=== PATIENT | male | born 1965 | race Caucasian/White ===

== ENCOUNTER 2020-01-18 17:24 | Outpatient (CLI) | payer OTHER ==
[2020-01-18 17:54] LABS: HB2 TOTAL 16.1 g/dL; HEMOGLOBIN A1C 0.99 g/dL; HEMOGLOBIN A1C % 7.8 % (4.6-6.2)
== END 2020-01-18 17:25 | disposition home or self-care (01) ==
LOC: LAB 17:24
PROVIDERS: ATTEND Family Medicine
DX: E11.65 Type 2 diabetes mellitus with hyperglycemia (principal)
CPT/HCPCS: 36415; 83036

== ENCOUNTER 2020-04-18 12:51 | Outpatient (CLI) | payer OTHER ==
[2020-04-18 14:11] LABS: HEMOGLOBIN A1c% 7.3 % (4.27-6.07)
== END 2020-04-18 12:52 | disposition home or self-care (01) ==
LOC: LAB 12:51
PROVIDERS: ATTEND Family Medicine
DX: E11.65 Type 2 diabetes mellitus with hyperglycemia (principal)
CPT/HCPCS: 36415; 83036

== ENCOUNTER 2020-06-11 15:59 | Emergency (ER) | payer OTHER ==
[2020-06-11 16:13] VITALS: BP 142/85
[2020-06-11] MEDS ORDERED: LIDOCAINE 1% 2 ML VIAL MC ONE (16:40)
[2020-06-11] MEDS ORDERED: SULFAMETH/TRIMETH DS 800/160 MG TABLET PO STA (16:40)
[2020-06-11] MEDS ORDERED: HYDROcod/ACETAM 5/325 MG TABLET PO STA (16:40)
[2020-06-11] MEDS ORDERED: cefTRIAXone 1 GM VIAL IM STA (16:40)
--- NOTE | 2020-06-11 16:44 | ED Physician Documentation ---
History of Present Illness - Stated complaint Stated Complaint: SWOLLEN FEET/ANKLES - Chief complaint Chief Complaint: Ext Problem - History obtained from History obtained from: Patient - History of Present Illness Pain level max: 5 Pain level now: 5 - Additonal information Additional information: Patient is a 55-year-old male who has an ongoing history of bilateral lower extremity cellulitis for the past several months. Improved on Bactrim. Stopped the Bactrim 2 weeks ago. Redness and swelling have now increased again. Nothing makes it better or worse. He is diabetic. He states that his blood sugars are well controlled at home. Review of Systems Constitutional: denies: Fever, Chills Ears: denies: Ear pain Nose: denies: Rhinorrhea / runny nose, Congestion GI: denies: Vomiting, Diarrhea Musculoskeletal: denies: Neck pain, Back pain Neurologic: denies: Headache PD PAST MEDICAL HISTORY - Past Medical History Past Medical History: Yes Cardiovascular: High cholesterol Endocrine/Autoimmune: Type 2 diabetes - Present Medications Home Medications: Ambulatory Orders Medication Instructions Recorded Confirmed Cephalexin [Keflex] 500 mg PO Q6H #56 capsule 06/11/20 HYDROcod/ACETAM 5/325 [Story 5/325] 1 - 2 ea PO Q6H PRN #14 tablet 06/11/20 Sulfamethox/Trimeth 800/160 1 each PO BID #28 tablet 06/11/20 [Bactrim Ds 800/160] - Allergies Allergies/Adverse Reactions: Allergies Allergy/AdvReac Type Severity Reaction Status Date / Time ramipril Allergy Unknown Verified 06/11/20 16:07 - Living Situation Living Arrangement: reports: At home - Social History Does the pt have substance abuse?: No - Family History Family history: reports: Non contributory PD ED PE NORMAL - Vitals Vital signs reviewed: Yes - General General: Alert and oriented X 3, No acute distress - HEENT HEENT: Moist mucous membranes - Neck Neck: Supple, no meningeal sign - Cardiac Cardiac: RRR - Respiratory Respiratory: No respiratory distress, Clear bilaterally - Derm Derm: Warm and dry - Extremities Extremities: Other (B LE swelling, erythema to the ankles and mid calves. NVI. no crepitus. ) - Neuro Neuro: Alert and oriented X 3 - Psych Psych: Normal mood, Normal affect Results - Vitals Vitals: Vital Signs - 24 hr 06/11/20 16:07 Temperature 37.2 C Heart Rate 103 H Respiratory 18 Rate Blood Pressure 142/85 H O2 Saturation 100 Oxygen O2 Source Room air - Labs Labs: Laboratory Tests 06/11/20 16:52 POC Whole Bld Glucose 255 H PD MEDICAL DECISION MAKING - ED course Complexity details: considered differential, d/w patient ED course: Patient with what appears to be a bilateral lower extremity cellulitis. We will trial him on a longer course of antibiotics. He seemed to improve last time with Bactrim. Could also have a fungal infection underlying, we will have him reevaluated with his doctor near the end of the week after the antibiotics have had time to begin to work. No evidence of sepsis. No fever. Patient counseled regarding signs and symptoms for which I believe and urgent re-evaluation would be necessary. Patient with good understanding of and agreement to plan and is comfortable going home at this time This document was made in part using voice recognition software. While efforts are made to proofread this document, sound alike and grammatical errors may occur. Patient was given Bactrim and Rocephin here Departure - Departure Disposition: 01 Home, Self Care Clinical Impression: Cellulitis Qualifiers: Site of cellulitis: extremity Site of cellulitis of extremity: lower extremity Laterality: unspecified laterality Qualified Code(s): L03.119 - Cellulitis of unspecified part of limb Condition: Good Instructions: ED Infec Skin Cellulitis Follow-Up: MJ STEELE DO [Primary Care Provider] - Within 1 week Prescriptions: Sulfamethox/Trimeth 800/160 [Bactrim Ds 800/160] 1 each PO BID #28 tablet Cephalexin [Keflex] 500 mg PO Q6H #56 capsule HYDROcod/ACETAM 5/325 [Story 5/325] 1 - 2 ea PO Q6H PRN #14 tablet PRN Reason: Pain Comments: Take all antibiotics until gone. Return if you worsen. Follow-up closely with your doctor. There could be an underlying fungal infection, you should be reevaluated at the end of the week by your doctor to see how you improve with the antibiotics alone. Do not drink alcohol or drive while on narcotic pain medicine. Note that many narcotic pain relievers also contain tylenol/acetaminophen. Please ensure that your total dose of acetaminophen from all sources does not exceed 3 grams (3000mg) per day. You may constipated on this medication, take a stool softener such as "Colace" twice a day while you are on it. Also recommend a imlo-dnw-ysmbvpl laxative such as senna or MiraLAX any day that you do not have a bowel movement. If you received narcotic pain medication in the emergency department, do not drive or operate machinery for the next 24 hours.
== END 2020-06-11 17:31 | disposition home or self-care (01) ==
LOC: ED 15:59
DX: L03.116 Cellulitis of left lower limb (principal); L03.115 Cellulitis of right lower limb; E11.9 Type 2 diabetes mellitus without complications
CPT/HCPCS: 96372; 99283; 99284; A9270

== ENCOUNTER 2022-05-23 11:28 | Outpatient (CLI) | payer OTHER ==
[2022-05-23 11:46] LABS: BASOPHILS % (AUTO) 0.5 %; EOSINOPHILS # (AUTO) 0.1 10^3/uL (0.0-0.7); EOSINOPHILS % (AUTO) 1.4 %; HCT - HEMATOCRIT 40.4 % (42.0-52.0); HGB - HEMOGLOBIN 13.9 g/dL (14.0-18.0); LYMPHOCYTES # (AUTO) 1.6 10^3/uL (1.5-3.5); LYMPHOCYTES % (AUTO) 24.4 %; MEAN CORPUSCULAR HEMOGLOBIN 28.5 pg (27.0-31.0); MEAN CORPUSCULAR HGB CONC 34.4 g/dL (32.0-36.0); MEAN PLATELET VOLUME 9.4 fL (7.4-11.4); MONOCYTES # (AUTO) 0.3 10^3/uL (0.0-1.0); MONOCYTES % (AUTO) 5.1 %; NEUTROPHILS # (AUTO) 4.4 10^3/uL (1.5-6.6); NEUTROPHILS % (AUTO) 67.8 %; PLT - PLATELET COUNT 155 10^3/uL (130-450); RED BLOOD COUNT 4.87 10^6/uL (4.70-6.10); RED CELL DISTRIBUTION WIDTH 13.5 % (12.0-15.0); WHITE BLOOD COUNT 6.5 x10^3/uL (4.8-10.8)
[2022-05-23 12:01] LABS: ALBUMIN 4.6 g/dL (3.2-5.5); ALBUMIN/GLOBULIN RATIO 1.6 (1.0-2.2); BILIRUBIN,TOTAL 0.8 mg/dL (0.2-1.0); CALCIUM 9.6 mg/dL (8.5-10.3); CREATININE 0.6 mg/dL (0.6-1.2); POTASSIUM 3.9 mmol/L (3.5-5.0); TOTAL PROTEIN 7.5 g/dL (6.7-8.2)
== END 2022-05-23 11:29 | disposition home or self-care (01) ==
LOC: LAB 11:28
PROVIDERS: ATTEND Family Medicine
DX: D69.6 Thrombocytopenia, unspecified (principal); R53.83 Other fatigue; I10 Essential (primary) hypertension; E11.40 Type 2 diabetes mellitus with diabetic neuropathy, unspecified
CPT/HCPCS: 36415; 80053; 85025

== ENCOUNTER 2022-10-10 19:09 | Emergency (ER) | payer OTHER ==
--- NOTE | 2022-10-10 19:38 | ED Physician Documentation ---
PD HPI FOCAL NEURO - Stated complaint Stated Complaint: HEAD PX - Chief complaint Chief Complaint: General - History obtained from History obtained from: Patient - Additional information Additional information: 57-year-old gentleman with type 2 diabetes on metformin, Ozempic, and Jardiance, and hypertension on losartan, amlodipine/hydrochlorothiazide, and metoprolol presents feeling dizzy for the last 5 days. On further description it is really more of a disequilibrium present more with walking than sitting. He also notices some heaviness of the left arm but not weakness per se. It does get w orse if he rapidly turns his head. He denies numbness or tingling anywhere or weakness in the left leg or face. No headache. No chest pain or trouble breathing. PD PAST MEDICAL HISTORY - Past Medical History Cardiovascular: High cholesterol Endocrine/Autoimmune: Type 2 diabetes - Present Medications Home Medications: Ambulatory Orders Medication Instructions Recorded Confirmed Empagliflozin [Jardiance] 10 mg PO DAILY 10/10/22 10/10/22 Losartan/Hydrochlorothiazide 1 tab PO BID 10/10/22 10/10/22 [Losartan-Hctz 100-12.5 mg Tab] Metoprolol Tartrate [Lopressor] 25 mg PO BID 10/10/22 10/10/22 amLODIPine [Norvasc] 5 mg PO DAILY 10/10/22 10/10/22 - Allergies Allergies/Adverse Reactions: Allergies Allergy/AdvReac Type Severity Reaction Status Date / Time ramipril Allergy Unknown Verified 10/10/22 19:19 - Social History Does the pt smoke?: No Smoking Status: Never smoker Does the pt have substance abuse?: No PD ED PE NORMAL - Vitals Vital signs reviewed: Yes - General General: Alert and oriented X 3, No acute distress - HEENT HEENT: PERRL, EOMI - Neck Neck: Supple, no meningeal sign, No bony TTP - Cardiac Cardiac: RRR, No murmur - Respiratory Respiratory: No respiratory distress, Clear bilaterally - Abdomen Abdomen: Normal bowel sounds, Soft, Non tender - Derm Derm: Normal color, Warm and dry - Extremities Extremities: No edema, No calf tenderness / cord, Other (Shiny legs with venous stasis changes, good pedal pulses though.) - Neuro Neuro: Alert and oriented X 3, No motor deficit, No sensory deficit, Normal speech Eye Opening: Spontaneous Motor: Obeys Commands Verbal: Oriented GCS Score: 15 NIHSS - Time Time: 19:30 - Level of Consciousness Level of consciousness: (0) Alert, Keenly responsive LOC Questions: (0) Answers both Q's correct LOC Commands: (0) Performs both correctly - Gaze Best Gaze: (0) Normal - Visual Visual: (0) No loss - Facial Palsy Facial Palsy: (0) Normal, symmetrical movement - Motor Arms (both separate) Motor Arm (right): (0) No drift Motor Arm (left): (0) No drift - Motor Legs (both separate) Motor Leg (right): (0) No drift Motor Leg (left): (0) No drift - Limb Ataxia Limb Ataxia: (1) Present in 1 limb (Potential very mild ataxia on left finger- nose testing) - Sensory Sensory: (0) Normal - Best Language Best Language: (0) No aphasia - Dysarthria Dysarthria: (0) Normal - Extinction and Inattention (formally neg Extinction and inattention: (0) No abnormality - Total Score/Results Total Score/Result: 1 Results - Vitals Vitals: Vital Signs - 24 hr 10/10/22 10/10/22 10/10/22 19:11 20:43 21:23 Temperature 36.9 C 36.7 C Heart Rate 82 69 80 Respiratory 17 19 16 Rate Blood Pressure 180/98 H 178/108 H 178/99 H O2 Saturation 97 98 100 Oxygen O2 Source Room air - EKG (time done) 1952 EKG releavant findings:: EKG personally interpreted by author of this note. Relevant findings are: Rate: Rate (enter#) (75) Rhythm: NSR [place]: Normal Intervals: Normal MO QRS: Normal Ischemia: Normal ST segments - Labs Labs: Laboratory Tests 10/10/22 10/10/22 19:49 19:49 WBC 5.6 RBC 5.32 Hgb 14.9 Hct 44.5 MCV 83.6 MCH 28.0 MCHC 33.5 RDW 13.4 Plt Count 151 MPV 10.0 Neut # (Auto) 3.6 Lymph # (Auto) 1.6 Ward # (Auto) 0.3 Eos # (Auto) 0.1 Baso # (Auto) 0.0 Absolute Nucleated RBC 0.00 Nucleated RBC % 0.0 Sodium 141 Potassium 3.6 Chloride 104 Carbon Dioxide 28 Anion Gap 9.0 BUN 14 Creatinine 0.8 Estimated GFR (MDRD) 99 Glucose 183 H Calcium 9.2 PD Medical Decision Making - ED course ED course: 57-year-old gentleman presents with symptoms that are concerning for a posterior stroke. He is clearly outside of the appropriate timeframe for consideration of tPA. CT and CT angiography imaging of the head and neck was concerning with potential brainstem infarct with some vascular disease in the right posterior cerebral artery. There is mild plaquing in the carotid bulbs without high-grade stenosis. No MRI is available at this time of night but he probably will need one for confirmation. He was given 4 baby aspirin here and we discussed staying in the hospital for MRI tomorrow versus returning in the morning and he opts for the latter. I do think this is safe given how long he has been symptomatic. Departure - Departure Disposition: 01 Home, Self Care Clinical Impression: CVA (cerebral vascular accident) Qualifiers: CVA mechanism: unspecified Qualified Code(s): I63.9 - Cerebral infarction, unspecified Condition: Good Record reviewed to determine appropriate education?: Yes Instructions: ED Stroke Completed Comments: As discussed, it appears today that you likely had a small brainstem stroke, likely 4 to 5 days ago. For confirmation you should return in the morning for MRI. You did receive 4 baby aspirin today and you should continue taking a baby aspirin a day for now. You should follow-up with your primary care physician, next available appointment for further evaluation and treatment and continued optimization of blood pressure and blood sugar.
[2022-10-10 19:57] LABS: BASOPHILS % (AUTO) 0.5 %; EOSINOPHILS # (AUTO) 0.1 10^3/uL (0.0-0.7); EOSINOPHILS % (AUTO) 1.8 %; HCT - HEMATOCRIT 44.5 % (42.0-52.0); HGB - HEMOGLOBIN 14.9 g/dL (14.0-18.0); LYMPHOCYTES # (AUTO) 1.6 10^3/uL (1.5-3.5); LYMPHOCYTES % (AUTO) 27.9 %; MEAN CORPUSCULAR HGB CONC 33.5 g/dL (32.0-36.0); MEAN CORPUSCULAR VOLUME 83.6 fL (80.0-94.0); MONOCYTES # (AUTO) 0.3 10^3/uL (0.0-1.0); MONOCYTES % (AUTO) 5.2 %; NEUTROPHILS # (AUTO) 3.6 10^3/uL (1.5-6.6); NEUTROPHILS % (AUTO) 64.4 %; PLT - PLATELET COUNT 151 10^3/uL (130-450); RED BLOOD COUNT 5.32 10^6/uL (4.70-6.10); RED CELL DISTRIBUTION WIDTH 13.4 % (12.0-15.0); WHITE BLOOD COUNT 5.6 x10^3/uL (4.8-10.8)
[2022-10-10] MEDS ORDERED: iohexoL-300 100 ML VIAL ONE (19:57)
[2022-10-10 20:03] LABS: CALCIUM 9.2 mg/dL (8.5-10.3); CREATININE 0.8 mg/dL (0.6-1.2); POTASSIUM 3.6 mmol/L (3.5-5.0)
--- NOTE | 2022-10-10 21:01 | CT Report ---
PROCEDURE: ANGIO HEAD W/WO INDICATIONS: dysequilibrium CONTRAST: 80mL Omni 300 TECHNIQUE: Precontrast 4.5 mm thick angled axial sections acquired from the foramen magnum to the vertex. Afte r the administration of intravenous contrast, 1 mm thick sections acquired through the [place] of [place] is. Postcontrast 4.5 mm thick sections then re-acquired from the foramen magnum to the vertex. 3-di mensional ulgyhpo-yiftkribj-txrkkkeuyf (MIP) and/or volume rendering reformats were acquired of the c entral intracranial vasculature. For radiation dose reduction, the following was used: automated ex posure control, adjustment of mA and/or kV according to patient size. COMPARISON: Concurrent CT angiogram of the neck FINDINGS: Image quality: There is beam hardening artifact in the posterior fossa. BRAIN: CSF spaces: Basal cisterns are patent. No extra-axial fluid collections. Ventricles are normal in size and shape. Brain: No intracranial hemorrhage, mass, or mass effect. Park-white matter interface appears preser kavon. There is heterogeneous appearance of the brainstem likely reflecting beam hardening artifact. N o abnormal intracranial enhancement. Skull and face: Calvarium and facial bones appear intact, without suspicious lesions. Orbits appear normal. Sinuses: Sinuses and mastoids are clear. HEAD CT ANGIOGRAPHY: Anterior circulation: Intracranial internal carotid arteries are normal in size and appear patent bi laterally. There is mild atherosclerotic calcification along the cavernous segments of the internal carotid arteries. The paired anterior cerebral arteries appear patent bilaterally. The anterior com municating artery also appears patent. The middle cerebral arteries appear patent bilaterally. No hi gh-grade stenosis, occlusion, or filling defects. No cerebral aneurysms identified. Posterior circulation: Visualized portions of the vertebral arteries demonstrate normal caliber, and join to form a patent basilar artery. The posterior cerebral arteries appears patent bilaterally, w ith multifocal narrowing in the right posterior cerebral artery including focal moderate narrowing in the P2 segment as seen on axial series 13 image 61 and coronal MIPS series 23 image 20. No occlusio n or filling defects. No cerebral aneurysms identified. IMPRESSION: 1. No intracranial hemorrhage or mass effect. 2. Heterogeneous appearance of the mainstem may reflect artifact due to beam hardening artifact, but if there is clinical suspicion for a brainstem infarct further evaluation is recommended with MRI. 3. Multifocal narrowing in the right posterior cerebral artery with a focus of moderate stenosis in t he P2 segment. The basilar artery appears widely patent. Reviewed by: Lalo Miramontes MD on 10/10/2022 8:59 PM PDT Approved by: Lalo Miramontes MD on 10/10/2022 8:59 PM PDT Station ID: [id number]
--- NOTE | 2022-10-10 21:04 | CT Report ---
PROCEDURE: ANGIO NECK W INDICATIONS: dysequilibrium CONTRAST: 80mL Omni 300 TECHNIQUE: After the administration of intravenous contrast, 1.5 mm axial sections acquired from the aortic arch to the [place] of [place]. Coronal 3-D maximum intensity projection (MIP) and/or volume rendering ref ormats were then performed. For radiation dose reduction, the following was used: automated exposur e control, adjustment of mA and/or kV according to patient size. COMPARISON: Concurrent CT angiogram of the head. FINDINGS: Image quality: Excellent. NECK CT ANGIOGRAPHY: Carotid system: The great vessels demonstrate a conventional anatomy as they arise from the aortic a rch. The origins of the common carotid arteries appear patent. The common carotid arteries demonstr ate normal caliber and courses. There is mild partially calcified plaque at the carotid bifurcations with minimal narrowing of less than 25% in the carotid bulbs. The internal carotid arteries demonstra te normal calibers and courses. Posterior circulation: The origins of the vertebral arteries both appear patent. The more superior extracranial portions of both vertebral arteries also demonstrate normal courses and calibers. They join to form a patent basilar artery. Soft tissues: Visualized neck soft tissues demonstrate no suspicious abnormalities. There is mild mo tion artifact Bones: No suspicious bony lesions. Visualized cervical spine demonstrates straightening of the cerv ical lordosis. There is multilevel degenerative disc disease and facet joint arthropathy. IMPRESSION: 1. No high-grade stenosis or occlusion of the head and neck arteries. 2. Minimal narrowing of less than 25% in the carotid bulbs. 3. Patent appearance of the vertebral and basilar arteries. The estimate of stenosis included in the report of the imaging study was calculated using the NASCET method Reviewed by: Lalo Miramontes MD on 10/10/2022 9:03 PM PDT Approved by: Lalo Miramontes MD on 10/10/2022 9:03 PM PDT Station ID: [id number]
[2022-10-10] MEDS ORDERED: ASPIRIN CHEW 81 MG TABLET PO STA (21:05)
[2022-10-10 21:24] VITALS: BP 178/99
[2022-10-11] MEDS ORDERED: iohexoL-300 100 ML VIAL IVP ONE (03:49)
== END 2022-10-10 21:26 | disposition home or self-care (01) ==
LOC: ED 19:09
DX: I63.9 Cerebral infarction, unspecified (principal); R29.701 NIHSS score 1
CPT/HCPCS: 36415; 70496; 70498; 80048; 85025; 93005; 99284; A9270

== ENCOUNTER 2022-10-15 15:24 | Outpatient (CLI) | payer OTHER ==
--- NOTE | 2022-10-15 16:42 | MRI Report ---
PROCEDURE: MRI brain without contrast INDICATIONS: Neurologic deficit TECHNIQUE: Noncontrast axial T1 spin echo, axial T2 fast spin echo, sagittal and axial FLAIR, coronal T2 fast sp in echo, axial gradient echo, axial diffusion and ADC through the brain. COMPARISON: CT angiogram 10/10/2022 FINDINGS: Image quality: Excellent. CSF Spaces: Basal cisterns are patent. No extra-axial fluid collections. Ventricles are normal in size and shape. Brain: There is restricted diffusion in the right hemipons consistent with subacute infarct. No asso ciated hemorrhage or mass effect. Mild atrophy and white matter chronic ischemic change present. No intracranial masses or hemorrhage. Normal intravascular flow voids are present. Skull and face: Calvarium has normal marrow signal. Orbits appear normal. Sinuses: Sinuses and mastoids are clear. IMPRESSION: Subacute right pontine infarct Reviewed by: Jarred Deras MD on 10/15/2022 3:41 PM AKDT Approved by: Jarred Deras MD on 10/15/2022 3:41 PM AKDT Station ID: [id number]
== END 2022-10-15 15:25 | disposition home or self-care (01) ==
LOC: DI 15:24
PROVIDERS: ATTEND Family Medicine
DX: I63.9 Cerebral infarction, unspecified (principal)